=== PATIENT | female | born 1955 | race African-American/Black ===

== ENCOUNTER 2020-01-10 14:45 | Emergency (ER) | payer MEDICARE, MEDICAID ==
--- NOTE | 2020-01-10 14:58 | ED ---
GI/ HPI - HPI Summary HPI Summary: Patient is a 64 y/o F presenting to the ED via EMS for a chief complaint of vaginal bleeding for the last 2 days. Prior to this, she last had vaginal bleeding 10 years ago. She is using pads for the bleeding, having used 2 pads on 01/10/20. She is unsure when she last had a pap smear, but estimates it may have been 4 years ago. Last pap smear was unremarkable. Patient reports fatigue , nausea, vomiting, diarrhea, and generalized weakness. She also admits a recent weight loss of 20-30 pounds in the last month. Patient denies abdominal pain or vaginal discharge. Any aggravating or alleviating factors are denied. PMHx is significant for sickle cell trait history and seasonal allergies. PSHx is significant for ovarian cyst removal. Patient denies tobacco, alcohol, or drug use. She does not take anticoagulants. Patient denies the possibility of having a STD or STI. Medications reviewed. Allergies noted. - History of Current Complaint Chief Complaint: EDVaginalBleeding Time Seen by Provider: 01/10/20 14:50 Stated Complaint: VAGINAL BLEEDING PER EMS Hx Obtained From: Patient Onset/Duration: Atraumatic, Still Present Timing: Constant Severity: Mild Current Severity: None Pain Intensity: 0 Location of Pain: None - 0 Associated Signs and Symptoms: Positive: Weakness - Generalized, Nausea, Vomiting, Weight Loss - 20-30 pounds. Negative: Discharge - Vaginal, Abdominal Pain Additional Signs & Symptoms: Positive: Vaginal Bleeding. Negative: Vaginal Discharge Aggravating Factor(s): Nothing Alleviating Factor(s): Nothing - Allergy/Home Medications Allergies/Adverse Reactions: Allergies Allergy/AdvReac Type Severity Reaction Status Date / Time MS Aspirin [Aspirin] Allergy Unknown Verified 10/30/16 15:57 Reaction Details MS Penicillins [Penicillins] Allergy Unknown Verified 10/30/16 15:57 Reaction Details Home Medications: Home Medications Acetaminophen [Tylenol Extra Strength] 500 mg PO Q6H PRN 01/10/20 [History Confirmed 01/10/20] Atropine 1% OPHTH.TOÑA* 1 drop RIGHT EYE BID 01/10/20 [History Confirmed 01/10/20 ] Erythromycin OPHTH.OINT* [Ilotycin OPHTH.OINT*] 1 applic BOTH EYES TID 01/10/20 [History Confirmed 01/10/20] Hydrocodone/Acetaminophen [[place] 7.5-325 Tablet] 1 each PO Q6H PRN 01/10/20 [ History Confirmed 01/10/20] Lisinopril/Hydrochlorothiazide [Lisinopril-Hctz 10-12.5 mg Tab] 1 each PO DAILY 01/10/20 [History Confirmed 01/10/20] Nystatin/Triamcinolone CR(NF) [Mycolog CREAM(NF)] 1 applic TOPICAL BID 01/10/20 [History Confirmed 01/10/20] Timolol 0.25% OPHTH.SOLN* [Timoptic Ophth.soln 0.25%] 1 drop BOTH EYES Q12H 10/19 [History Confirmed 01/10/20] prednisoLONE 1% OPHTH.SUSP* [Pred Forte 1%*] 1 drop RIGHT EYE QID 01/10/20 [ History Confirmed 01/10/20] PMH/Surg Hx/FS Hx/Imm Hx Previously Healthy: Yes Endocrine/Hematology History: Reports: Hx Diabetes Denies: Hx Sickle Cell Disease - Sickle Cell Trait Cardiovascular History: Reports: Hx Hypertension GI History: Reports: Hx Gastroesophageal Reflux Disease Sensory History: 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 Denies: Hx Deafness Opthamlomology History: 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 EENT History: Denies: Hx Deafness Neurological History: Reports: Hx Migraine - Surgical History Surgical History: Yes Surgery Procedure, Year, and Place: Ovarian cyst removal Infectious Disease History: No Infectious Disease History: Denies: Traveled Outside the [place] in Last 30 Days - Family History Known Family History: Positive: Cardiac Disease - Social History Occupation: Retired Lives: With Family Alcohol Use: Occasionally Hx Substance Use: No Substance Use Type: Reports: None Hx Tobacco Use: No Smoking Status (MU): Never Smoked Tobacco Review of Systems Positive: Fatigue, Other - Positive 20-30 pound weight loss Positive: Vomiting, Nausea. Negative: Abdominal Pain Positive: other - Positive vaginal bleeding. Negative: discharge - Vaginal Positive: Weakness - Generalized All Other Systems Reviewed And Are Negative: Yes Physical Exam - Summary Physical Exam Summary: Constitutional: Well-developed, Well-nourished, Alert. (-) Distressed Skin: Warm, Dry HENT: Normocephalic; Atraumatic Eyes: Conjunctiva normal Neck: Musculoskeletal ROM normal neck. (-) JVD, (-) Stridor, (-) Tracheal deviation Cardio: Rhythm regular, rate normal, Heart sounds normal; Intact distal pulses; Radial pulses are 2+ and symmetric. (-) Murmur Pulmonary/Chest wall: Effort normal. (-) Respiratory distress, (-) Wheezes, (-) Rales Abd: Soft, (-) tenderness, (-) Distension, (-) Guarding, (-) Rebound Musculoskeletal: (-) Edema Lymph: (-) Cervical adenopathy Neuro: Alert, Oriented x3 Psych: Mood and affect Normal : Fatou, nurse, is present for the exam. Mild amount of blood in the vaginal vault, no obvious cervical mass, but limited secondary to pain, no ovarian and cervical masses palpated. Triage Information Reviewed: Yes Vital Signs On Initial Exam: Initial Vitals Temp Pulse Resp BP Pulse Ox 97.1 F 103 16 113/83 98 01/10/20 14:47 01/10/20 14:47 01/10/20 14:47 01/10/20 14:47 01/10/20 14:47 Vital Signs Reviewed: Yes Procedures - Sedation Patient Received Moderate/Deep Sedation with Procedure: No Diagnostics - Vital Signs Vital Signs Temp Pulse Resp BP Pulse Ox 01/10/20 14:51 104 113/83 98 01/10/20 14:50 100 98 01/10/20 14:47 97.1 F 103 16 113/83 98 - Laboratory Result Diagrams: 01/10/20 15:04 01/10/20 15:04 Lab Statement: Any lab studies that have been ordered have been reviewed, and results considered in the medical decision making process. - Ultrasound Transvaginal US Ultrasound Interpretation Completed By: Radiologist Summary of Ultrasound Findings: Transvaginal US IMPRESSION: 1. ABNORMAL THICKENING OF THE ENDOMETRIAL ECHO SUGGESTIVE OF ENDOMETRIAL HYPERPLASIA OR CARCINOMA. RECOMMEND FURTHER CLINICAL EVALUATION. 2. ENLARGED FIBROID UTERUS. 3. THE OVARIES ARE NOT VISUALIZED. THERE IS A CALCIFIED MASS IN THE RIGHT ADNEXAL REGION POSSIBLY REPRESENTING A CALCIFIED SUBSEROSAL FIBROID ALTERNATIVELY MAY REPRESENT A DERMOID CYST OR OTHER CALCIFIED MASS. RECOMMEND AN OUTPATIENT CT OF THE ABDOMEN AND PELVIS WITH INTRAVENOUS CONTRAST ENHANCEMENT FOR FURTHER EVALUATION. Reviewed by Dr. Rao. GIGU Course/Dx - Course Course Of Treatment: Patient is here with vaginal bleeding. Patient also complains of nausea and weight loss. Patient was actively bleeding on exam but had a mild amount of blood in her vault. Patient had no obvious cervical mass palpated. Patient's hemoglobin is stable. Patient was found to be mildly hyperthyroid which could contribute to her bleeding. Patient had an ultrasound which showed a thickened endometrial stripe concerning for carcinoma. OXYGEN FURNACE OPERATOR was called to make sure patient had close follow-up and will call patient. Patient was told multiple times she needs to follow up as soon as possible and was comfortable with the plan - Diagnoses Provider Diagnoses: Vaginal bleeding, Hypothyroidism, Uterine mass - Physician Notifications Discussed Care Of Patient With: Nicole Brown - At 17:13, Dr. Brown states the patient should call to make an appointment. Time Discussed With Above Provider: 17:13 Instructed by Provider To: Have Pt Call For Appt. Discharge ED - Sign-Out/Discharge Documenting (check all that apply): Patient Departure - Discharge - Discharge Plan Condition: Stable Disposition: HOME Prescriptions: Ondansetron ODT TAB* [Zofran 4 MG Odt TAB*] 4 mg PO Q8H PRN #12 tab.odt PRN Reason: Vomiting Patient Education Materials: Hypothyroidism (ED) Referrals: Lashae Campbell NP [Primary Care Provider] - Nicole Brown MD [Medical Doctor] - Additional Instructions: PLEASE RETURN TO EMERGENCY DEPARTMENT IF YOU FEEL YOU WILL PASS OUT, YOUR HEART IS RACING, OR FOR ANY NEW OR WORSENING SYMPTOMS. Please follow up with your primary care physician. Please make all follow-ups in 1-3 days unless I advise you otherwise. Call Dr. Brown to follow up with her as you might have uterine cancer and you need to be evaluated within the next week. - Billing Disposition and Condition Condition: STABLE Disposition: Home - Attestation Statements Document Initiated by Arron: Yes Documenting Scribe: Opal Panchal Provider For Whom Arron is Documenting (Include Credential): Antoni Rao MD Scribe Attestation: Opal Chang scribed for Antoni Rao MD on 01/10/20 at 8900. Scribe Documentation Reviewed: Yes Provider Attestation: The documentation as recorded by the Opal borrero accurately reflects the service I personally performed and the decisions made by me, Antoni Rao MD Status of Scribe Document: Viewed
[2020-01-10 15:22] LABS: ABS Basophils 0.1 10^3/ul (0-0.2); ABS Lymphocytes 2.2 10^3/ul (1.0-4.8); ABS Monocytes 0.6 10^3/ul (0-0.8); ABS Neutrophils 4.8 10^3/ul (1.5-7.7); Eosinophil % 0.4 %; Hematocrit 38 % (35-47); Hemoglobin 12.4 g/dL (12.0-16.0); Lymphocyte % 28.4 %; Mean Corpuscular HGB Conc 33 g/dL (31-36); Mean Corpuscular Hemoglobin 23 pg (27-31); Mean Corpuscular Volume 71 fL (80-97); Mean Platelet Volume 7.9 fL (7.4-10.4); Nucleated Red Blood Cells % 0.1; Platelet Count 287 10^3/uL (150-450); Red Blood Count 5.29 10^6 /uL (3.70-4.87); Red Cell Distribution Width 13 % (10-15); White Blood Count 7.8 10^3/uL (3.5-10.8)
[2020-01-10 15:32] LABS: INR 1.05 (0.82-1.09)
[2020-01-10 15:35] LABS: Albumin 4.1 g/dL (3.2-5.2); BUN/Creatinine Ratio 17.9 (8-20); Calcium 9.9 mg/dL (8.6-10.3); EGFR African American 35.7 (>60); EGFR Non-African American 29.5 (>60); Magnesium 2.2 mg/dL (1.9-2.7); Potassium 3.5 mmol/L (3.5-5.0); Total Bilirubin 0.8 mg/dL (0.2-1.0); Total Protein 8.1 g/dL (6.4-8.9)
[2020-01-10 15:52] LABS: TSH (Thyroid Stimulating Horm) 0.14 mcIU/mL (0.34-5.60)
[2020-01-10 17:11] LABS: Free T4 2.49 ng/dL (0.61-1.12)
[2020-01-10 17:39] VITALS: BP 119/58
[2020-01-11 12:51] LABS: Trichomonas vag NAA Female Negative (Negative)
[2020-01-11 13:16] LABS: Chlamydia trachomatis NAA Negative (Negative); Neisseria gonorrhoeae (GC) NAA Negative (Negative)
== END 2020-01-10 17:39 | disposition home or self-care (01) ==
LOC: ED 14:45
DX: N93.9 Abnormal uterine and vaginal bleeding, unspecified (principal); E03.9 Hypothyroidism, unspecified; D25.9 Leiomyoma of uterus, unspecified; E11.9 Type 2 diabetes mellitus without complications; I10 Essential (primary) hypertension; K21.9 Gastro-esophageal reflux disease without esophagitis; Z79.899 Other long term (current) drug therapy; Z88.0 Allergy status to penicillin; Z88.8 Allergy status to other drugs, medicaments and biological substances
CPT/HCPCS: 36415; 76830; 80053; 83735; 84439; 84443; 85025; 85610; 87480; 87491; 87510; 87591; 87661; 99283

== ENCOUNTER 2020-11-02 08:58 | Inpatient (IN) ==
[2020-11-02] MEDS ORDERED: Adenosine 3 MG/ML 2 ml VIAL (6 mg) IV PUSH ONE ×4 (09:07→16:32)
[2020-11-02 09:46] LABS: ABS Basophils 0.1 10^3/ul (0-0.2); ABS Eosinophils 0.2 10^3/ul (0-0.6); ABS Monocytes 0.8 10^3/ul (0-0.8); ABS Neutrophils 6.6 10^3/ul (1.5-7.7); Eosinophil % 2.2 %; Hematocrit 38 % (35-47); Hemoglobin 12.2 g/dL (12.0-16.0); Lymphocyte % 20.8 %; Mean Corpuscular HGB Conc 32 g/dL (31-36); Mean Corpuscular Hemoglobin 23 pg (27-31); Mean Corpuscular Volume 72 fL (80-97); Mean Platelet Volume 8.2 fL (7.4-10.4); Nucleated Red Blood Cells % 0.1; Platelet Count 274 10^3/uL (150-450); Red Blood Count 5.31 10^6 /uL (3.70-4.87); Red Cell Distribution Width 14 % (10-15); White Blood Count 9.6 10^3/uL (3.5-10.8)
[2020-11-02 09:58] LABS: Activated Partial Thrombo Time 24.8 seconds (26.0-38.0); INR 1.05 (0.82-1.09)
[2020-11-02 10:05] LABS: CKMB ng/mL 5.6 ng/mL (0.6-6.3)
[2020-11-02 10:11] LABS: ALT 196 U/L (7-52); AST 109 U/L (13-39); Albumin 3.8 g/dL (3.2-5.2); Alkaline Phosphatase 66 U/L (34-104); Anion Gap 9 mmol/L (2-11); BUN/Creatinine Ratio 15.7 (8-20); Blood Urea Nitrogen 24 mg/dL (6-24); CO2 Carbon Dioxide 24 mmol/L (22-32); Chloride 101 mmol/L (101-111); Creatine Kinase 364 U/L (10-223); EGFR Non-African American 33.9 (>60); Glucose 122 mg/dL (70-100); Magnesium 1.7 mg/dL (1.9-2.7); Potassium 4.3 mmol/L (3.5-5.0); Sodium 134 mmol/L (135-145); Total Protein 7.8 g/dL (6.4-8.9)
[2020-11-02] MEDS ORDERED: Magnesium Sulfate IV 1GM/100ML 1 GM/100 ML BAG IV ONE (10:23)
[2020-11-02 10:51] LABS: TSH Ultra Thyroid Stim Horm 6.76 mcIU/mL (0.34-5.60)
[2020-11-02 11:02] LABS: Troponin I 0.04 ng/mL (<0.03)
[2020-11-02 11:29] LABS: Urine Appearance Clear; Urine Bilirubin Negative (Negative); Urine Blood 1+ (Negative); Urine Color Straw; Urine Glucose Negative (Negative); Urine Ketones Negative (Negative); Urine Nitrite Negative (Negative); Urine Protein 1+(30 mg/dL) (Negative); Urine Specific Gravity 1.009 (1.010-1.030); Urine Urobilinogen Negative (Negative)
[2020-11-02 13:46] LABS: Troponin I 0.07 ng/mL (<0.03)
[2020-11-02] MEDS ORDERED: Adenosine 3 MG/ML 2 ml VIAL (6 mg) ONE (16:35)
[2020-11-02] MEDS ORDERED: Metoprolol Tartrate 5 mg VIAL 5 ml VIAL (1 mg/ml) IV ONE ×2 (16:42→20:43)
[2020-11-02] MEDS ORDERED: Magnesium Sulfate 2 gm BAG 2 GM/50 ML BAG IVPB ONE (16:42)
[2020-11-02 16:44] LABS: Free T4 1.61 ng/dL (0.61-1.12)
[2020-11-02 16:48] LABS: Total T3 76 ng/dL (87-178)
[2020-11-02] MEDS ORDERED: Al Hydrox/Mg Hydrox/Simet LIQ 30 ML UDC PO ONE (19:04)
[2020-11-02] MEDS: Enoxaparin 40 MG/0.4 ML SYR SUBCUT SCH (19:19)
[2020-11-02] MEDS: CMC: Dorzolamide/Timolol OPTH (NF) 10 ML BOT BOTH EYES SCH (19:31)
[2020-11-02 20:36] LABS: Troponin I 0.07 ng/mL (<0.03)
[2020-11-02 21:05] LABS: CO2 Carbon Dioxide 18 mmol/L (22-32); Chloride 100 mmol/L (101-111); Magnesium 2.5 mg/dL (1.9-2.7); Sodium 132 mmol/L (135-145)
[2020-11-02 21:08] LABS: Anion Gap 14 mmol/L (2-11); Potassium 4.5 mmol/L (3.5-5.0)
[2020-11-02 21:10] LABS: BUN/Creatinine Ratio 12.8 (8-20); Blood Urea Nitrogen 20 mg/dL (6-24); EGFR African American 40.1 (>60); EGFR Non-African American 33.1 (>60); Glucose 178 mg/dL (70-100)
[2020-11-03 04:30] LABS: ABS Basophils 0.1 10^3/ul (0-0.2); ABS Eosinophils 0.2 10^3/ul (0-0.6); ABS Monocytes 0.8 10^3/ul (0-0.8); ABS Neutrophils 5.1 10^3/ul (1.5-7.7); Hematocrit 35 % (35-47); Hemoglobin 11.2 g/dL (12.0-16.0); Lymphocyte % 24.7 %; Mean Corpuscular HGB Conc 32 g/dL (31-36); Mean Corpuscular Hemoglobin 23 pg (27-31); Mean Corpuscular Volume 71 fL (80-97); Mean Platelet Volume 7.9 fL (7.4-10.4); Nucleated Red Blood Cells % 0.1; Platelet Count 234 10^3/uL (150-450); Red Blood Count 4.93 10^6 /uL (3.70-4.87); Red Cell Distribution Width 14 % (10-15); White Blood Count 8.1 10^3/uL (3.5-10.8)
[2020-11-03 04:42] LABS: Anion Gap 3 mmol/L (2-11); BUN/Creatinine Ratio 13.3 (8-20); Blood Urea Nitrogen 24 mg/dL (6-24); CO2 Carbon Dioxide 28 mmol/L (22-32); Calcium 8.6 mg/dL (8.6-10.3); Chloride 101 mmol/L (101-111); EGFR African American 33.7 (>60); EGFR Non-African American 27.9 (>60); Glucose 142 mg/dL (70-100); Magnesium 2.5 mg/dL (1.9-2.7); Potassium 4.3 mmol/L (3.5-5.0); Sodium 132 mmol/L (135-145)
[2020-11-03 07:41] LABS: Troponin I 0.06 ng/mL (<0.03)
[2020-11-03] MEDS: CMC: Dorzolamide/Timolol OPTH (NF) 10 ML BOT BOTH EYES SCH ×2 (09:27→20:04)
[2020-11-03] MEDS: Polyethylene Glycol 3350 17 GM PACKET PO SCH (12:02)
[2020-11-03] MEDS ORDERED: NORETHINDRONE ACETATE PO SCH (12:30)
[2020-11-03 13:40] LABS: % Iron Saturation 31 % (15-55); Iron 127 ug/dL (50-212); Total Iron Binding Capacity 416 mcg/dL (250-450); Transferrin 297 mg/dL (203-362); Unsaturated Iron Binding < 401 ug/dL
[2020-11-03 13:41] LABS: ALT 209 U/L (7-52); AST 120 U/L (13-39); Cholesterol 173 mg/dL; Creatine Kinase 266 U/L (10-223); LDL Cholesterol 134 mg/dL; Triglycerides 58 mg/dL
[2020-11-03 14:00] LABS: Ferritin 14.5 ng/mL (11-307)
[2020-11-03] MEDS ORDERED: NORETHINDRONE ACETATE 5 MG PO SCH (14:52)
[2020-11-03] MEDS ORDERED: NON FORMULARY MED (Norethindrone Acetate 5 MG) PO SCH (16:30)
[2020-11-03] MEDS: NORETHINDRONE ACETATE 5 MG PO SCH (20:04)
[2020-11-03] MEDS: Enoxaparin 40 MG/0.4 ML SYR SUBCUT SCH (20:04)
[2020-11-04 05:42] LABS: ALT 177 U/L (7-52); AST 96 U/L (13-39); Albumin 3.4 g/dL (3.2-5.2); Alkaline Phosphatase 46 U/L (34-104); Anion Gap 8 mmol/L (2-11); BUN/Creatinine Ratio 13.6 (8-20); Blood Urea Nitrogen 24 mg/dL (6-24); CO2 Carbon Dioxide 24 mmol/L (22-32); Calcium 8.6 mg/dL (8.6-10.3); Chloride 101 mmol/L (101-111); EGFR African American 34.9 (>60); EGFR Non-African American 28.8 (>60); Globulin 3.5 g/dL (2-4); Glucose 113 mg/dL (70-100); Magnesium 2.2 mg/dL (1.9-2.7); Phosphorus 3.2 mg/dL (2.5-5.0); Potassium 4.2 mmol/L (3.5-5.0); Sodium 133 mmol/L (135-145); Total Protein 6.9 g/dL (6.4-8.9)
[2020-11-04] MEDS: NORETHINDRONE ACETATE 5 MG PO SCH ×2 (07:35→19:35)
[2020-11-04] MEDS: Polyethylene Glycol 3350 17 GM PACKET PO SCH (07:35)
[2020-11-04] MEDS: CMC: Dorzolamide/Timolol OPTH (NF) 10 ML BOT BOTH EYES SCH ×2 (07:43→19:36)
[2020-11-04 11:35] LABS: Creatine Kinase 247 U/L (10-223)
[2020-11-04] MEDS: Carbamide Peroxide 6.5% OTIC 15 ML BTL BOTH EARS SCH ×2 (11:46→19:35)
[2020-11-04 11:55] LABS: Troponin I 0.04 ng/mL (<0.03)
[2020-11-04] MEDS: Al Hydrox/Mg Hydrox/Simet LIQ 30 ML UDC PO PRN (17:49)
[2020-11-04] MEDS: Enoxaparin 40 MG/0.4 ML SYR SUBCUT SCH (19:36)
[2020-11-05 07:16] LABS: Albumin 3.8 g/dL (3.2-5.2); BUN/Creatinine Ratio 12.4 (8-20); EGFR African American 36.3 (>60); Globulin 3.9 g/dL (2-4); Potassium 4.3 mmol/L (3.5-5.0); Total Bilirubin 0.7 mg/dL (0.2-1.0); Total Protein 7.7 g/dL (6.4-8.9)
[2020-11-05] MEDS: NORETHINDRONE ACETATE 5 MG PO SCH ×2 (08:34→19:53)
[2020-11-05] MEDS: Carbamide Peroxide 6.5% OTIC 15 ML BTL BOTH EARS SCH ×2 (10:19→19:53)
[2020-11-05] MEDS: CMC: Dorzolamide/Timolol OPTH (NF) 10 ML BOT BOTH EYES SCH ×2 (10:19→19:53)
[2020-11-05] MEDS: Polyethylene Glycol 3350 17 GM PACKET PO SCH (10:19)
[2020-11-05 12:22] LABS: Hepatitis B Surface Antigen Nonreactive (Nonreactive)
[2020-11-05 12:28] LABS: Hepatitis A Ab IgM Negative (Negative)
[2020-11-05 12:29] LABS: Hepatitis B Core IgM Nonreactive (Nonreactive)
[2020-11-05 12:39] LABS: Hepatitis C Antibody Negative (Negative)
[2020-11-05] MEDS: Al Hydrox/Mg Hydrox/Simet LIQ 30 ML UDC PO PRN (12:44)
[2020-11-05] MEDS: Enoxaparin 40 MG/0.4 ML SYR SUBCUT SCH (19:53)
[2020-11-06 09:00] LABS: BUN/Creatinine Ratio 11.3 (8-20); Calcium 8.8 mg/dL (8.6-10.3); EGFR African American 39.2 (>60); EGFR Non-African American 32.4 (>60); Magnesium 2.3 mg/dL (1.9-2.7); Potassium 4.4 mmol/L (3.5-5.0)
[2020-11-06] MEDS: Polyethylene Glycol 3350 17 GM PACKET PO SCH (10:03)
[2020-11-06] MEDS: Carbamide Peroxide 6.5% OTIC 15 ML BTL BOTH EARS SCH ×2 (10:04→20:49)
[2020-11-06] MEDS: NORETHINDRONE ACETATE 5 MG PO SCH ×2 (10:09→20:48)
[2020-11-06] MEDS: CMC: Dorzolamide/Timolol OPTH (NF) 10 ML BOT BOTH EYES SCH ×2 (10:14→20:49)
[2020-11-06] MEDS: Al Hydrox/Mg Hydrox/Simet LIQ 30 ML UDC PO PRN (13:07)
[2020-11-06] MEDS: Enoxaparin 40 MG/0.4 ML SYR SUBCUT SCH (20:48)
[2020-11-07] MEDS: Polyethylene Glycol 3350 17 GM PACKET PO SCH (09:20)
[2020-11-07] MEDS: CMC: Dorzolamide/Timolol OPTH (NF) 10 ML BOT BOTH EYES SCH (09:21)
[2020-11-07] MEDS: NORETHINDRONE ACETATE 5 MG PO SCH (09:21)
[2020-11-07] MEDS: Carbamide Peroxide 6.5% OTIC 15 ML BTL BOTH EARS SCH (09:21)
[2020-11-07] MEDS: Al Hydrox/Mg Hydrox/Simet LIQ 30 ML UDC PO PRN (13:08)
[2020-11-07 13:45] VITALS: BP 185/70
== END 2020-11-07 15:10 | disposition home or self-care (01) | DRG 309 ==
LOC: ED 08:58 → ICU 08:58 → OBSVTOIN 15:49 → ICU 17:43 → MEDTELE 11-03 17:53
PROVIDERS: ADMIT Internal Medicine; ATTEND Internal Medicine

== ENCOUNTER 2021-08-26 14:38 | Observation (INO) ==
[2021-08-26] MEDS ORDERED: Lactated Ringers 1000 ml BAG 1,000 ML IV ONE ×2 (15:08→17:15)
[2021-08-26 15:21] LABS: ABS Basophils 0.1 10^3/ul (0-0.2); ABS Lymphocytes 1.4 10^3/ul (1.0-4.8); ABS Monocytes 0.6 10^3/ul (0-0.8); ABS Neutrophils 7.2 10^3/ul (1.5-7.7); Eosinophil % 0.3 %; Hematocrit 40 % (35-47); Hemoglobin 12.5 g/dL (12.0-16.0); Lymphocyte % 15.3 %; Mean Corpuscular HGB Conc 31 g/dL (31-36); Mean Corpuscular Hemoglobin 22 pg (27-31); Mean Corpuscular Volume 71 fL (80-97); Mean Platelet Volume 8.8 fL (7.4-10.4); Platelet Count 252 10^3/uL (150-450); Red Blood Count 5.59 10^6 /uL (3.70-4.87); Red Cell Distribution Width 16 % (10-15); White Blood Count 9.3 10^3/uL (3.5-10.8)
[2021-08-26 15:38] LABS: Urine Appearance Clear; Urine Bilirubin Negative (Negative); Urine Blood Negative (Negative); Urine Color Straw; Urine Glucose 3+(>=500 mg/dL) (Negative); Urine Ketones Trace (Negative); Urine Nitrite Negative (Negative); Urine Protein Negative (Negative); Urine Specific Gravity 1.027 (1.002-1.030); Urine Urobilinogen Negative (Negative)
[2021-08-26 15:43] LABS: Urine Bacteria 1+ (Absent); Urine Red Blood Cell 1+(3-5/hpf) (Absent); Urine Squamous Epithelial Cell Present (Absent); Urine White Blood Cell 1+(6-10/hpf) (Absent)
[2021-08-26 16:26] LABS: Albumin 4.3 g/dL (3.2-5.2); Calcium 10.2 mg/dL (8.6-10.3); EGFR Non-African American 31.4 (>60); Globulin 4.4 g/dL (2-4); Magnesium 2.2 mg/dL (1.9-2.7); Potassium 4.7 mmol/L (3.5-5.0); Total Bilirubin 0.9 mg/dL (0.2-1.0); Total Protein 8.7 g/dL (6.4-8.9)
[2021-08-26 16:53] LABS: Venous Bicarbonate HCO3 27.8 mmol/L (24-28)
[2021-08-26] MEDS ORDERED: Dextrose 50% Syringe 50 ml 25 GM/50 ML SYRINGE IV PUSH PRN ×2 (19:48→22:14)
[2021-08-26] MEDS ORDERED: Lactated Ringers 1000 ml BAG 1,000 ML IV SCH (20:00)
[2021-08-26] MEDS ORDERED: Enoxaparin 40 MG/0.4 ML SYR SUBCUT SCH (21:00)
[2021-08-26 21:06] LABS: Rapid COVID-19 Molecular Undetected (Undetected)
[2021-08-26 21:21] LABS: Ur Urea Nitrogen Concentration 174 mg/dL
[2021-08-26 21:31] LABS: EGFR African American 38.8 (>60); EGFR Non-African American 32.1 (>60); HDL Cholesterol 44.1 mg/dL; Potassium 3.8 mmol/L (3.5-5.0)
[2021-08-26 21:44] LABS: Urine Sodium Concentration < 18 mmol/L
[2021-08-26 21:47] LABS: TSH Ultra Thyroid Stim Horm 1.13 mcIU/mL (0.34-5.60)
[2021-08-26] MEDS ORDERED: Senna TAB 8.6 mg TAB PO PRN (21:48)
[2021-08-26] MEDS ORDERED: Polyethylene Glycol 3350 17 GM PACKET PO PRN (21:48)
[2021-08-26] MEDS ORDERED: Potassium Chlor 20 meq TAB.ER PO ONE (21:49)
[2021-08-27] MEDS ORDERED: Lactated Ringers 1000 ml BAG 1,000 ML IV SCH (01:00)
[2021-08-27 06:54] LABS: ABS Basophils 0.1 10^3/ul (0-0.2); ABS Eosinophils 0.1 10^3/ul (0-0.6); ABS Lymphocytes 2.3 10^3/ul (1.0-4.8); ABS Monocytes 0.8 10^3/ul (0-0.8); ABS Neutrophils 6.4 10^3/ul (1.5-7.7); Eosinophil % 0.9 %; Hematocrit 36 % (35-47); Hemoglobin 11.4 g/dL (12.0-16.0); Lymphocyte % 23.6 %; Mean Corpuscular HGB Conc 32 g/dL (31-36); Mean Corpuscular Hemoglobin 22 pg (27-31); Mean Corpuscular Volume 70 fL (80-97); Mean Platelet Volume 8.8 fL (7.4-10.4); Platelet Count 226 10^3/uL (150-450); Red Cell Distribution Width 16 % (10-15); White Blood Count 9.6 10^3/uL (3.5-10.8)
[2021-08-27 07:14] LABS: Calcium 9.7 mg/dL (8.6-10.3); EGFR African American 45.6 (>60); EGFR Non-African American 37.7 (>60); Potassium 4.1 mmol/L (3.5-5.0)
[2021-08-27] MEDS: prednisoLONE 1% OPHTH.SUSP 5 ML OPHTH.SUSP RIGHT EYE SCH ×2 (08:17→12:31)
[2021-08-27] MEDS ORDERED: CMCS: Dorzolamide/Timolol OPTH (NF) 10 ML BOT BOTH EYES SCH (09:00)
[2021-08-27] MEDS ORDERED: Insulin GLARGINE 100 un/ml 10 ml VIAL SUBCUT SCH (09:28)
[2021-08-27] MEDS ORDERED: Sitagliptin 50 mg TAB (NF) PO SCH (11:00)
[2021-08-27] MEDS ORDERED: CMCS: SitaGLIPtin 25mg TAB (NF) 25 MG TAB PO SCH (11:30)
[2021-08-27 11:48] LABS: Glucose Confirmatory 436 mg/dL (70-100)
[2021-08-27 15:48] VITALS: BP 143/78
[2021-08-28 13:09] LABS: Hemoglobin A1c MML 13.9 % (4.0-5.6)
[2021-08-28 14:45] LABS: Beta Hydroxy Butyrate 1.7 mmol/L (<0.4)
== END 2021-08-27 05:25 | disposition left against medical advice (07) ==
LOC: ED 14:38 → MEDTELE 14:38
PROVIDERS: ADMIT Internal Medicine; ATTEND Internal Medicine